=== PATIENT | female | born 1990 | race Caucasian/White ===

== ENCOUNTER 2023-08-04 14:00 | Outpatient (OUT) | payer BC, SELFPAY ==
--- NOTE | 2023-08-04 14:15 | US_ITS ---
The [address] [address] Patient Name: JAYLA TURNER MRN: [id number] date: 1990 Sex: F Assigned Patient Location: US Current Patient Location: Accession/Order Number: [id number] Exam Date: 08/04/2023 14:16 Report Date: 08/04/2023 14:43 At the request of: NOHELIA LEE Procedure: US OB limited EXAM: US OB limited HISTORY: 17 Weeks Gestation Z3A.17, Heart Tones COMPARISON: None. TECHNIQUE: Transabdominal ultrasound FINDINGS: heart rate: 0 bpm BPD: 13 weeks 4 days HC: 14 weeks 3 days Before meals: 14 weeks 2 days FL: 13 weeks 5 days Estimated weight: 88 g (< 3rd percentile) GA by LMP: 18 weeks 2 days SEGUNDO by LMP: 12/17/2023 GA by US: 14 weeks 0 days SEGUNDO by US: 02/02/2024 US/US OB limited IMPRESSION: 1. demise: Intrauterine 14 weeks 0 days by today's ultrasound with no detectable heartbeat. 2. Findings are being called to the office of Dr. Lee. Electronically authenticated by: CAITY JORGENSEN Date: 08/04/2023 14:43
== END 2023-08-04 14:01 | disposition home or self-care (01) ==
LOC: US 14:04
PROVIDERS: Visit Provider Midwife
DX: O02.1 Missed abortion (principal); Z3A.17 17 weeks gestation of pregnancy
CPT/HCPCS: 76815

== ENCOUNTER 2023-08-07 04:58 | Inpatient (IN) | payer BC, SELFPAY ==
[2023-08-07] VITALS (39 sets, daily range): BP systolic 85–125; BP diastolic 49–70; PULSE 71–101; RESP 18; TEMP 36.7
[2023-08-07 05:58] LABS: Basophils Percent Auto 0.2 % (0.2-2.0); Eosinophils Absolute Auto 0.1 10^3/uL (0.0-0.7); Eosinophils Percent Auto 1.3 % (0.9-7.0); Hematocrit 34.5 % (36.0-48.0); Hemoglobin 11.9 g/dL (12.0-16.0); Immature Granulocytes Abs Auto 0.04 10^3/uL (0.00-0.03); Immature Granulocytes Pct Auto 0.6 % (0.0-0.5); Lymphocytes Absolute Auto 1.6 10^3/uL (1.2-3.8); Lymphocytes Percent Auto 24.8 % (20.5-60.0); Mean Corpuscular HGB Conc 34.5 g/dL (29.9-35.2); Mean Corpuscular Hemoglobin 31.8 pg (26.7-34.0); Mean Corpuscular Volume 92.2 fL (81.0-99.0); Mean Platelet Volume 9.8 fL (9.5-13.5); Monocytes Absolute Auto 0.5 10^3/uL (0.3-0.8); Neutrophils Absolute Auto 4.2 10^3/uL (1.4-6.5); Neutrophils Percent Auto 65.1 % (43.0-75.0); Platelet Count 204 10^3/uL (150-450); Red Blood Count 3.74 10^6/uL (4.20-5.40); Red Cell Distribution Width 12.1 % (11.0-15.0); White Blood Count 6.4 10^3/uL (4.0-11.0)
--- NOTE | 2023-08-07 06:03 | PC.NURSE ---
Spoke to patient at great length about plan of care. Patient tearful and has fears of baby still being alive. Reassurance given, went over the US confirmation and doppled abdomen for heart tones for reassurance.Patient states she still feels the baby move. So Silva called to request a second confirmation ultra sound. So Silva orders US for second confirmation. Patient and made aware of plan of care.
[2023-08-07 06:13] LABS: INR 0.94; Partial Thromboplastin Time 25.4 sec (22.3-36.2)
--- NOTE | 2023-08-07 06:20 | US_ITS ---
[address] [address] Patient Name: JAYLA TURNER MRN: [id number] date: 1990 Sex: F Assigned Patient Location: [facility] Current Patient Location: [facility] Accession/Order Number: [id number] Exam Date: 08/07/2023 06:35 Report Date: 08/07/2023 07:14 At the request of: NOHELIA LEE Procedure: US OB limited EXAM: US OB limited HISTORY: Second confirmation of demise prior to induction COMPARISON: Ultrasound OB Limited 08/04/2023 TECHNIQUE: Transabdominal ultrasound. FINDINGS: Heart rate: 0 bpm Presentation: Breech GA: 18 weeks 3 days SEGUNDO: 01/03/2024 US/US OB limited IMPRESSION: 1. Findings consistent with demise. Electronically authenticated by: CAITY JORGENSEN Date: 08/07/2023 07:14
[2023-08-07] MEDS: LACTATED RINGER'S SOLUTION 1,000 ML 125 ML IV ×2 (06:47→14:41)
--- NOTE | 2023-08-07 06:53 | PC.NURSE ---
US in room. demise confirmed with patient.
[2023-08-07] MEDS: MISOPROSTOL 100 MCG TABLET 400 MCG VAGINAL ×2 (07:22→10:23)
--- NOTE | 2023-08-07 07:23 | W.PC.ACHO ---
Registration Status: ADM IN Primary Language: Citizen [place] Preferred Language: [place] Report received from Patricio POSADA. Active Medications Generic Name Dose Route Start Last Admin Trade Name Freq PRN Reason Stop Dose Admin Acetaminophen 1,000 mg 08/07/23 05:02 Acetaminophen 500 Mg Tablet PO Q6H PRN Pain Carboprost Tromethamine 250 mcg 08/07/23 05:02 Carboprost Tromethamine 250 Mcg/Ml 1 Ml Vial IM 08/09/23 05:02 Q15M PRN Bleeding Diphenoxylate HCl/Atropine 1 tab 08/07/23 05:02 Diphenoxylate Hcl 2.5 Mg/Atropine 0.025 Mg Tablet PO Q4H PRN Diarrhea Lactated Ringer's 1,000 mls @ 125 mls/hr 08/07/23 05:15 08/07/23 06:47 Lactated Ringers IV 125 mls/hr .Q8H ALDA Administration Meperidine HCl 25 mg 08/07/23 05:02 Meperidine Hcl/Pf 25 Mg/Ml Vial IM Q3H PRN Pain Methylergonovine Maleate 0.2 mg 08/07/23 05:02 Methylergonovine Maleate 0.2 Mg/Ml Ampule IM 08/09/23 05:02 ONCE PRN Uterine Contractility/Contract Methylergonovine Maleate 0.2 mg 08/07/23 05:02 Methylergonovine Maleate 0.2 Mg Tablet PO 08/09/23 05:02 Q4H PRN Uterine Contractility/Contract Misoprostol 400 mcg 08/07/23 05:15 08/07/23 07:22 Misoprostol 100 Mcg Tablet VAGINAL 400 mcg Q3H ALDA Administration Misoprostol 600 mcg 08/07/23 05:02 Misoprostol 100 Mcg Tablet PO 08/09/23 05:02 ONCE PRN Uterine Bleeding Misoprostol 800 mcg 08/07/23 05:02 Misoprostol 100 Mcg Tablet SL 08/09/23 05:02 ONCE PRN Uterine Bleeding Misoprostol 1,000 mcg 08/07/23 05:02 Misoprostol 100 Mcg Tablet MN 08/09/23 05:02 ONCE PRN Uterine Bleeding Ondansetron HCl 4 mg 08/07/23 05:02 Ondansetron Pf 4 Mg/2 Ml Vial IV Q6H PRN Nausea Oxytocin 10 unit 08/07/23 05:02 Oxytocin 10 Unit/Ml Vial IM 08/09/23 05:02 ONCE PRN Bleeding Consults Category Date Time Status Consult to Anesthesiology Routine Cons 08/07/23 Ordered IV Insertion/Site Date of IV Line Insertion [20g 08/07/23 left Forearm] IV Insertion Time [20g left 05:50 Forearm] Neurology Patient orientation (short person,place,time,situation list)
[2023-08-07] MEDS: ACETAMINOPHEN 500 MG TABLET 1000 MG PO (10:47)
[2023-08-07] MEDS: HYDROMORPHONE HCL 1 MG/ML CARTRIDGE IV (15:00)
--- NOTE | 2023-08-07 15:03 | US_ITS ---
The [address] [address] Patient Name: JAYLA TURNER MRN: [id number] date: 1990 Sex: F Assigned Patient Location: [facility] Current Patient Location: [facility] Accession/Order Number: [id number] Exam Date: 08/07/2023 15:15 Report Date: 08/07/2023 17:20 At the request of: ALYSSA JARRELL Procedure: US pelvis transvaginal EXAM: US pelvis transvaginal - 08/07/2023 HISTORY: placental fragments following miscarriage COMPARISON STUDY: Pelvic ultrasound 10/05/2019. Pelvic ultrasound from the same day performed earlier at 6:44 AM. TECHNIQUE: Multiple sagittal and transverse images of the pelvis were obtained utilizing a transvaginal approach. Grayscale and color Doppler type images were obtained. FINDINGS: The uterus is anteverted in position. Previously identified intrauterine fetus seen on prior study from the same date earlier is no longer evident. Small volume of free pelvic fluid is noted. The endometrial stripe has AP thickness estimated at 13 mm. This is seen on sagittal imaging. On transverse imaging a intramural/submucosal mass with mixed echogenicity is noted anteriorly involving the mid to lower uterine segment. Margins are lobulated. This is associated with posterior acoustic shadowing. This measures 4.5 x 3.0 x 2.8 cm. Endometrial stripe posterior to this has AP thickness estimated at 6 mm. On the prior study from 10/05/2019 a stable appearing lesion was identified and was measured at 5.1 x 3.6 x 2.9 cm. No convincing evidence of obvious retained products of conception otherwise. A nabothian cyst at the cervix anteriorly is suspected measuring 7 mm. US/US pelvis transvaginal IMPRESSION: 1. The previously identified fetus with demise as seen on study performed earlier on the same date is no longer evident. Small volume of free pelvic fluid of the cul-de-sac noted. Ovaries are not visualized. 2. Lobulated mixed echogenic mass persists involving the mid to lower uterine segment anteriorly to the midline consistent with fibroid similar to that seen on prior study from 10/05/2019. Subcentimeter nabothian cysts noted. 3. No convincing evidence of retained products of conception. Electronically authenticated by: IVETTE PARIS Date: 08/07/2023 17:20
--- NOTE | 2023-08-07 15:46 | PM.OBPRCVD ---
Procedure Procedure: of demise 18 week, 2 day gestation Intrapartal events: None Induction method: per misoprostol protocol (miso protocol for demise ) Delivery monitor: external FHT Route of delivery: Episiotomy Description: none Laceration description: none Estimated blood loss (mL): 100 Anesthesia type: dilaudid Disposition: same day Narrative: Delivery of gestational sac noted. Sac would not deliver, called Dr Woo to come in and assist with delivery. Dr Woo in patients room and bimanual exam obtained and placenta delivered with some manual assistance, she then performed uterine sweep with no bleeding, tissue, clots noted. She then ordered TV U/S to assess for retained contents of . US tech to room and TV US performed. Dr Woo to room and discusses results. After RN assesses baby, she reported the baby had a CAN x1 tight. Dr Woo explains probably cord accident to patient and educated patient to wait for 1 year to attempt future . Delivery date: 08/07/23 Gender: male presentation: vertex Placental delivery description: Manual Removal (see above note. Manual removal per Dr Woo ) cord description: Nuchal Cord cord description comment: CAN x1
--- NOTE | 2023-08-07 16:01 | PM.OBHP ---
OB - H&P: HPI History of Present Illness Chief complaint: INDUCTION : 4 Para: 2 Gestational age based on last menstrual period: 18.4 Indications for induction: intrauterine History of Present Dating criteria: LMP confirmed by 2nd trimester US care: good care Ultrasounds: normal mid trimester US Abnormal ultrasound findings: late care. US obtained in 2nd trimester Labs Blood type: B (+) positive Rubella: immune RPR/VDLR: nonreactive Review of Systems ROS Status of ROS 10 or more systems reviewed and unremarkable except as noted in history and below Meds Home Medications and Allergies Allergies Allergy/AdvReac Type Severity Reaction Status Date / Time No Known Drug Allergies Allergy Verified 08/07/23 05:02 Exam Constitutional Vital Signs, click to edit/add: Last Vital Signs Temp 98.0 F 08/07/23 06:24 Pulse 90 08/07/23 15:57 Resp 18 08/07/23 06:24 BP 110/56 08/07/23 15:57 Common normals: oriented x3 Orientation/consciousness: Yes awake, Yes oriented to person, Yes oriented to place and Yes oriented to time HENMT Common normals: normocephalic Eye Common normals: EOMs intact bilaterally Neck & C-Spine Common normals: full ROM Lymph Lymphatic: no lymphadenopathy noted Respiratory Common normals: normal respiratory effort Cardio Common normals: regular rate and regular rhythm GI Common normals: Normal to inspection, nondistended, normoactive bowel sounds present Common normals: no CVA tenderness Back & Pelvis Common normals: no CVA tenderness Extremity Common normals: normal to inspection and full ROM Neuro Common normals: oriented x3 Psych Common normals: mental status grossly normal Attitude: calm and other (sad, tearful ) Activity/motor behavior: appropriate eye contact Results Labs Labs: Short CBC 08/07/23 Range/Units 05:45 WBC 6.4 (4.0-11.0) 10^3/uL Hgb 11.9 L (12.0-16.0) g/dL Hct 34.5 L (36.0-48.0) % Plt Count 204 (150-450) 10^3/uL OB - A/P Assessment and Plan (1) demise:
[2023-08-07 16:29] LABS: Hematocrit 33.7 % (36.0-48.0); Hemoglobin 11.5 g/dL (12.0-16.0); Mean Corpuscular HGB Conc 34.1 g/dL (29.9-35.2); Mean Corpuscular Hemoglobin 31.2 pg (26.7-34.0); Mean Corpuscular Volume 91.3 fL (81.0-99.0); Mean Platelet Volume 9.6 fL (9.5-13.5); Platelet Count 229 10^3/uL (150-450); Red Blood Count 3.69 10^6/uL (4.20-5.40)
[2023-08-07] MEDS: IBUPROFEN 400 MG TABLET 800 MG PO (19:03)
--- NOTE | 2023-08-07 19:38 | PC.NURSE ---
From [id number]: RN actively assisting parents with grieving process. Parents touching and holding baby and taking pictures. Parents given grief book and bear. RN obtains weight and measurements and recorded on crib card. RN takes pictures on camera and prints for parents to take home. Private time was provided for parents with fetus. Judaism was offered and declined. arrangements made per So Silva CNM with [facility] home in [place]. home to arrive 08/07/2023 between 8-9pm. From [id number]: RN sits with pt at bedside. RN provides support during this time.
--- NOTE | 2023-08-07 19:41 | PC.NURSE ---
Care resumed by this RN. Patient up to bathroom. Denies any needs at this time.
--- NOTE | 2023-08-07 20:10 | W.PC.ACHO ---
Registration Status: ADM IN Primary Language: [place] Preferred Language: [place] Report given at 1915. Active Medications Generic Name Dose Route Start Last Admin Trade Name Freq PRN Reason Stop Dose Admin Acetaminophen 1,000 mg 08/07/23 05:02 08/07/23 10:47 Acetaminophen 500 Mg Tablet PO 1,000 mg Q6H PRN Administration Pain Carboprost Tromethamine 250 mcg 08/07/23 05:02 Carboprost Tromethamine 250 Mcg/Ml 1 Ml Vial IM 08/09/23 05:02 Q15M PRN Bleeding Diphenoxylate HCl/Atropine 1 tab 08/07/23 05:02 Diphenoxylate Hcl 2.5 Mg/Atropine 0.025 Mg Tablet PO Q4H PRN Diarrhea Lactated Ringer's 1,000 mls @ 125 mls/hr 08/07/23 05:15 08/07/23 18:00 Lactated Ringers IV 0 mls/hr .Q8H ALDA Infusion Ibuprofen 800 mg 08/07/23 16:55 08/07/23 19:03 Ibuprofen 400 Mg Tablet PO 800 mg Q8H PRN Administration Pain Meperidine HCl 25 mg 08/07/23 05:02 Meperidine Hcl/Pf 25 Mg/Ml Vial IM Q3H PRN Pain Methylergonovine Maleate 0.2 mg 08/07/23 05:02 Methylergonovine Maleate 0.2 Mg/Ml Ampule IM 08/09/23 05:02 ONCE PRN Uterine Contractility/Contract Methylergonovine Maleate 0.2 mg 08/07/23 05:02 Methylergonovine Maleate 0.2 Mg Tablet PO 08/09/23 05:02 Q4H PRN Uterine Contractility/Contract Misoprostol 400 mcg 08/07/23 05:15 08/07/23 10:23 Misoprostol 100 Mcg Tablet VAGINAL 400 mcg Q3H ALDA Administration Misoprostol 600 mcg 08/07/23 05:02 Misoprostol 100 Mcg Tablet PO 08/09/23 05:02 ONCE PRN Uterine Bleeding Misoprostol 800 mcg 08/07/23 05:02 Misoprostol 100 Mcg Tablet SL 08/09/23 05:02 ONCE PRN Uterine Bleeding Misoprostol 1,000 mcg 08/07/23 05:02 Misoprostol 100 Mcg Tablet [place] 08/09/23 05:02 ONCE PRN Uterine Bleeding Ondansetron HCl 4 mg 08/07/23 05:02 Ondansetron Pf 4 Mg/2 Ml Vial IV Q6H PRN Nausea Oxytocin 10 unit 08/07/23 05:02 Oxytocin 10 Unit/Ml Vial IM 08/09/23 05:02 ONCE PRN Bleeding Diet Category Date Time Status Regular Consistency Diet Diet 08/07/23 16:56 Active Consults Category Date Time Status Consult to Anesthesiology Routine Cons 08/07/23 Ordered IV Insertion/Site Date of IV Line Insertion [20g 08/07/23 left Forearm] IV Insertion Time [20g left 05:50 Forearm] Neurology Patient orientation (short person,place,time,situation list)
--- NOTE | 2023-08-07 23:32 | PC.NURSE ---
2030- Fetus remains in room with parents. Parents openly talking about the grieving process with nurse. Both of the parents wish to go home after home leaves with the baby.
--- NOTE | 2023-08-07 23:36 | PC.NURSE ---
2030- [facility] home here to pick up attendant the baby. Jeremy from [facility] speaks with parents and communicates with them to contact them on Wednesday to make arrangements. Parents state understanding. Infant wrapped in blanket per parent request and both parents held and said their goodbyes before transport to home. Comfort and support offered to parents. Parents request to be discharged home shortly.
[2023-08-08 09:12] LABS: Immunoglobulin G, Qn 1063 mg/dL (586-1602); Immunoglobulin M, Q 84 mg/dL (26-217)
[2023-08-08 10:13] LABS: Homocyst(e)ine 4.7 umol/L (0.0-14.5)
[2023-08-09 13:12] LABS: Antithrombin Activity 130 % (75-135)
== END 2023-08-07 21:15 | disposition home or self-care (01) | DRG 807 ==
PROVIDERS: Admitting Provider Midwife; Visit Provider Midwife
DX: O36.4XX0 Maternal care for intrauterine death, not applicable or unspecified (principal); Z37.1 Single stillbirth; Z3A.18 18 weeks gestation of pregnancy
CPT/HCPCS: 36415; 76815; 76830; 81241; 81291; 82784; 83090; 85025; 85027; 85300; 85384; 85610; 85730; 86644; 86645; 86747; 86777; 86778; 86850; 86900; 86901; 88307; 96374; J1170